=== PATIENT | male | born 1985 | race Two or more races ===

== ENCOUNTER 2016-11-17 08:56 | Emergency (ER) | payer OTHER, BC ==
[~2016-11-17] VITALS: Ht 172.7 cm; Wt 117.3 kg
[2016-11-17 08:56] VITALS: BP 146/92
[2016-11-17] MEDS ORDERED: OMEP40CA2 (09:04)
[2016-11-17] MEDS ORDERED: LOSA25TA8 (09:04)
[2016-11-17] MEDS ORDERED: ROBA500T PO (09:58)
[2016-11-17] MEDS ORDERED: IBUP80TA PO (09:58)
== END 2016-11-17 10:11 | disposition home or self-care (01) ==
LOC: M ED 08:56
DX: S33.5XXA Sprain of ligaments of lumbar spine, initial encounter (principal); W10.8XXA Fall (on) (from) other stairs and steps, initial encounter; Y92.89 Other specified places as the place of occurrence of the external cause; Y93.01 Activity, walking, marching and hiking; Y99.9 Unspecified external cause status

== ENCOUNTER 2016-11-21 13:16 | Emergency (ER) | payer OTHER, BC ==
[~2016-11-21] VITALS: Ht 172.7 cm; Wt 115.9 kg
[2016-11-21 13:16] VITALS: BP 132/92
[~2016-11-21 13:16] MED LIST: IBUP80TA PO; LOSA25TA8; OMEP40CA2; ROBA500T PO
== END 2016-11-21 14:01 | disposition home or self-care (01) ==
LOC: M ED 13:16
DX: S73.101A Unspecified sprain of right hip, initial encounter (principal); I10 Essential (primary) hypertension; K21.9 Gastro-esophageal reflux disease without esophagitis; X58.XXXA Exposure to other specified factors, initial encounter; Y92.9 Unspecified place or not applicable; Y99.9 Unspecified external cause status; Y93.9 Activity, unspecified; Z79.899 Other long term (current) drug therapy

== ENCOUNTER 2017-09-27 12:06 | Emergency (ER) | payer BC, OTHER | END 2017-09-27 13:55 | disposition home or self-care (01) | LOC: M ED 12:06 | DX: S83.92XA Sprain of unspecified site of left knee, initial encounter (principal); M25.462 Effusion, left knee; X58.XXXA Exposure to other specified factors, initial encounter; Y92.89 Other specified places as the place of occurrence of the external cause; Z79.899 Other long term (current) drug therapy | CPT/HCPCS: 73564 ==

== ENCOUNTER → 2017-10-09 | Outpatient (REF) | payer BC, OTHER ==
[2017-10-09 15:58] LABS: BASO # 0.1 10^3/uL (0.0-0.2); BASO % 0.5 % (0.0-1.0); EOS # 0.1 10^3/uL (0.0-0.50); EOS % 1.1 % (0.0-3.0); HEMOGLOBIN 16.9 g/dl (13.5-17.5); IMMATURE GRANULOCYTE % 0.4 % (0-3.0); LYMPH # 2.2 10^3/uL (1.5-4.5); LYMPH % 21.8 % (24.0-44.0); MEAN CORPUSCULAR HEMOGLOBIN 27.8 pg (27.0-33.0); MEAN CORPUSCULAR HGB CONC 33.8 g/dl (32.0-36.5); MEAN CORPUSCULAR VOLUME 82.2 fl (80.0-96.0); MONO # 0.6 10^3/uL (0.0-0.8); NEUTROPHILS % 70.2 % (36.0-66.0); PLATELET COUNT, AUTOMATED 335 10^3/uL (150-450); RED BLOOD COUNT 6.08 10^6/uL (4.30-6.10); RED CELL DISTRIBUTION WIDTH 12.4 % (11.5-14.5)
[2017-10-09 16:19] LABS: C REACTIVE PROTEIN QUANTITATIV 1.65 MG/DL (0.00-0.30); RHEUMATOID FACTOR QUANT < 10.0 IU/ML (<15.0)
[2017-10-09 16:19] LABS: URIC ACID 10.3 MG/DL (3.5-7.2)
[2017-10-09 17:27] LABS: ERYTHROCYTE SEDIMENTATION RATE 2 mm/hr (0-15)
[2017-10-12 00:07] LABS: ANTINUCLEAR ANTIBODIES DIRECT Negative (Negative); Lyme Disease IgG/IgM Antibodie <0.91 ISR (0.00-0.90); Lyme Disease IgM Ab Quantitati <0.80 index (0.00-0.79)
== END ==
LOC: M LAB REF 15:30
DX: M25.562 Pain in left knee (principal)
CPT/HCPCS: 84550

== ENCOUNTER → 2018-07-19 | Outpatient (REF) | payer OTHER ==
[~2018-07-19] MED LIST changes: +LOSA25TA14; -LOSA25TA8; +MOBI4TAB PO; +NAPR-885 PO; +ULTR50TA8 PO
[2018-07-19 14:55] LABS: INFLUENZA A AMPLIFICATION NEGATIVE (NEGATIVE); INFLUENZA B AMPLIFICATION NEGATIVE (NEGATIVE)
== END ==
LOC: M LAB REF 14:06
PROVIDERS: ATTEND Physician Assistant
DX: J11.1 Influenza due to unidentified influenza virus with other respiratory manifestations (principal); R50.9 Fever, unspecified

== ENCOUNTER 2018-10-16 08:51 | Emergency (ER) | payer BC, OTHER ==
[~2018-10-16] VITALS: Ht 175.3 cm; Wt 116.4 kg
[2018-10-16] MEDS ORDERED: COLC1CAP PO (09:09)
[2018-10-16] MEDS ORDERED: ALLO100T PO (09:09)
[2018-10-16] MEDS ORDERED: LOSA50TA5 PO (09:09)
[2018-10-16] MEDS ORDERED: RABIES VACCINE HUMAN 2.5 INTERNATIONAL UNITS/ML VIAL (90675) IM ONE (09:30)
[2018-10-16] MEDS ORDERED: RABIES IMMUNE GLOBULIN 1500 INTERNATIONAL UNIT/5ML VIAL (90375) IM ONE ×2 (09:30→12:00)
[2018-10-16 10:36] VITALS: BP 129/81
[2018-10-16] MEDS ORDERED: RABIES IMMUNE GLOBULIN 300 INTERNATIONAL UNITS/1ML VIAL (90375) IM ONE (12:00)
== END 2018-10-16 11:09 | disposition home or self-care (01) ==
LOC: M ED 08:51
DX: Z20.3 Contact with and (suspected) exposure to rabies (principal); I10 Essential (primary) hypertension; Z79.899 Other long term (current) drug therapy

== ENCOUNTER 2018-10-16 12:25 | Emergency (ER) | payer BC, OTHER ==
[~2018-10-16] VITALS: Ht 175.3 cm; Wt 116.2 kg
[~2018-10-16 12:25] MED LIST changes: +ALLO100T PO; +COLC1CAP PO; +LOSA50TA5 PO
[2018-10-16 12:40] VITALS: BP 147/91
[2018-10-16] MEDS ORDERED: RABIES IMMUNE GLOBULIN 1500 INTERNATIONAL UNIT/5ML VIAL (90375) IM ONE ×2 (12:45→13:00)
[2018-10-16] MEDS ORDERED: RABIES IMMUNE GLOBULIN 300 INTERNATIONAL UNITS/1ML VIAL (90375) IM ONE (13:00)
== END 2018-10-16 13:29 | disposition home or self-care (01) ==
LOC: M ED 12:25
DX: Z20.3 Contact with and (suspected) exposure to rabies (principal); Z79.899 Other long term (current) drug therapy

== ENCOUNTER 2018-10-19 10:06 | Emergency (ER) | payer BC, OTHER ==
[~2018-10-19] VITALS: Ht 175.3 cm; Wt 116.8 kg
[2018-10-19] MEDS ORDERED: RABIES VACCINE HUMAN 2.5 INTERNATIONAL UNITS/ML VIAL (90675) IM ONE (10:45)
[2018-10-19 11:13] VITALS: BP 132/89
== END 2018-10-19 11:15 | disposition home or self-care (01) ==
LOC: M ED 10:06
DX: Z23 Encounter for immunization (principal); Z20.3 Contact with and (suspected) exposure to rabies; I10 Essential (primary) hypertension; Z79.899 Other long term (current) drug therapy

== ENCOUNTER 2018-10-23 11:13 | Emergency (ER) | payer BC, OTHER ==
[~2018-10-23] VITALS: Ht 175.3 cm; Wt 116.8 kg
[2018-10-23] MEDS ORDERED: RABIES VACCINE HUMAN 2.5 INTERNATIONAL UNITS/ML VIAL (90675) IM ONE (13:30)
[2018-10-23 13:45] VITALS: BP 120/82
== END 2018-10-23 13:46 | disposition home or self-care (01) ==
LOC: M ED 11:13
DX: Z23 Encounter for immunization (principal); Z20.3 Contact with and (suspected) exposure to rabies; G47.30 Sleep apnea, unspecified; Z99.89 Dependence on other enabling machines and devices

== ENCOUNTER 2018-10-30 16:31 | Emergency (ER) | payer BC, OTHER ==
[~2018-10-30] VITALS: Ht 175.3 cm; Wt 118.0 kg
[2018-10-30] MEDS ORDERED: RABIES VACCINE HUMAN 2.5 INTERNATIONAL UNITS/ML VIAL (90675) IM ONE (17:00)
[2018-10-30 17:34] VITALS: BP 168/88
== END 2018-10-30 17:34 | disposition home or self-care (01) ==
LOC: M ED 16:31
DX: Z23 Encounter for immunization (principal); Z20.3 Contact with and (suspected) exposure to rabies; Z79.899 Other long term (current) drug therapy

== ENCOUNTER → 2019-08-02 | Outpatient (CLI) | payer BC, OTHER ==
[~2019-08-02] MED LIST changes: -OMEP40CA2; +OMEP40CA97
== END ==
LOC: M LABSMTC 11:51
PROVIDERS: ATTEND Family Medicine
DX: Z11.59 Encounter for screening for other viral diseases (principal); Z20.828 Contact with and (suspected) exposure to other viral communicable diseases
CPT/HCPCS: 87502; U0002

== ENCOUNTER → 2020-02-19 | Outpatient (REF) | payer OTHER | LOC: M LAB REF 17:43 | PROVIDERS: ATTEND Dermatology | DX: D23.5 Other benign neoplasm of skin of trunk (principal) ==

== ENCOUNTER → 2020-06-10 | Outpatient (REF) | payer OTHER ==
[2020-06-10 17:36] LABS: C REACTIVE PROTEIN QUANTITATIV 7.14 MG/DL (0.00-0.30); URIC ACID 7.6 MG/DL (3.5-7.2)
== END ==
LOC: M LAB REF 16:17
PROVIDERS: ATTEND Internal Medicine
DX: M10.9 Gout, unspecified (principal)

== ENCOUNTER → 2020-07-02 | Outpatient (CLI) | payer OTHER ==
[2020-07-02 15:34] LABS: BASO % 0.6 % (0.0-1.0); EOS % 0.6 % (0.0-3.0); HEMATOCRIT 48.9 % (42.0-52.0); HEMOGLOBIN 16.4 g/dl (13.5-17.5); LYMPH % 28.8 % (24.0-44.0); MEAN CORPUSCULAR HGB CONC 33.5 g/dl (32.0-36.5); MEAN CORPUSCULAR VOLUME 83.4 fl (80.0-96.0); MONO # 0.7 10^3/uL (0.0-0.8); MONO % 10.1 % (2.0-8.0); NEUTROPHILS # 4.2 10^3/uL (1.5-8.5); NEUTROPHILS % 59.5 % (36.0-66.0); PLATELET COUNT, AUTOMATED 280 10^3/uL (150-450); RED BLOOD COUNT 5.86 10^6/uL (4.30-6.10)
[2020-07-02 15:54] LABS: ERYTHROCYTE SEDIMENTATION RATE 9 mm/hr (0-15)
[2020-07-02 16:05] LABS: RHEUMATOID FACTOR QUANT < 10.0 IU/ML (<15.0); URIC ACID 8.5 MG/DL (3.5-7.2)
== END ==
LOC: M PLALAB 13:58
PROVIDERS: ATTEND Orthopaedic Surgery
DX: M10.062 Idiopathic gout, left knee (principal)

== ENCOUNTER → 2020-07-02 | Outpatient (REF) | payer OTHER ==
[2020-07-02 18:02] LABS: SOURCE, BODY FLUID OTHER; SYNOVIAL FLUID COLOR YELLOW (YELLOW)
[2020-07-02 18:12] LABS: CRYSTALS, BODY FLUID NONE SEEN (NONE SEEN)
[2020-07-03 09:00] LABS: BODY FLUID RHEUMATOID SCREEN NEGATIVE (NEGATIVE)
[2020-07-03 09:01] LABS: MUCIN CLOT TEST 4+ (4+)
== END ==
LOC: M LAB REF 17:24
PROVIDERS: ATTEND Orthopaedic Surgery
DX: Z00.00 Encounter for general adult medical examination without abnormal findings (principal)

== ENCOUNTER → 2021-01-13 | Outpatient (CLI) | payer BC, OTHER ==
[~2021-01-13] MED LIST changes: +OMEP40CA4; -OMEP40CA97
--- NOTE | 2021-01-13 10:31 | REP ---
INDICATION: IDIOPATHIC CHRONIC GOUT WITHOUT TOPHUS. COMPARISON: None. TECHNIQUE: Eight views, bilateral foot radiographs. FINDINGS: Four views of each foot show overall normal mineralization. There is a os naviculare on the left and a somewhat prominent medial navicular process on the right. This is normal variant. No bony erosive changes seen. There is minimal spurring at the 1st MTP joint on the left. Bones, joints and soft tissues are otherwise unremarkable. IMPRESSION: Mild 1st MTP joint spurring on the left. 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 Somewhat prominent medial navicular process bilaterally. Normal variant. <Electronically signed by Anatoly Sheppard > 01/13/21 1026
[2021-01-13 12:18] LABS: ALBUMIN 4.1 GM/DL (3.2-5.2); ALT/SGPT 28 U/L (12-78); BILIRUBIN,DIRECT 0.2 MG/DL (0.0-0.2); BILIRUBIN,TOTAL 0.9 MG/DL (0.2-1.0); BLOOD UREA NITROGEN 16 MG/DL (7-18); CALCIUM LEVEL 9.5 MG/DL (8.5-10.1); CARBON DIOXIDE LEVEL 31 MEQ/L (21-32); CHLORIDE LEVEL 102 MEQ/L (98-107); CREATININE FOR GFR 1.23 MG/DL (0.70-1.30); GLOMERULAR FILTRATION RATE > 60.0 (>60); GLUCOSE, FASTING 111 MG/DL (70-100); POTASSIUM SERUM 3.8 MEQ/L (3.5-5.1); SODIUM LEVEL 138 MEQ/L (136-145); URIC ACID 6.4 MG/DL (3.5-7.2)
== END ==
LOC: M WUC 09:09
PROVIDERS: ATTEND Internal Medicine
DX: M1A.00X0 Idiopathic chronic gout, unspecified site, without tophus (tophi) (principal); Z79.1 Long term (current) use of non-steroidal anti-inflammatories (NSAID); M18.12 Unilateral primary osteoarthritis of first carpometacarpal joint, left hand

== ENCOUNTER → 2022-03-03 | Outpatient (REF) | payer BC, OTHER ==
[~2022-03-03] MED LIST changes: +LOSA25TA13; -LOSA25TA14
[2022-03-03 10:08] LABS: SEMEN APPEARANCE OPAQUE (OPAQUE); SEMEN VISCOSITY LIQUID (LIQUID); SEMEN VOLUME 3.5 ml (2.0-5.0); WBC CONCENTRATION <=1 M/ml (<=1 M/ml)
== END ==
LOC: M SMT 09:51
PROVIDERS: ATTEND Urology
DX: Z30.8 Encounter for other contraceptive management (principal)

== ENCOUNTER → 2022-11-13 | Outpatient (CLI) | payer BC, OTHER | LOC: M RAD 10:22 | PROVIDERS: ATTEND Internal Medicine | DX: N28.9 Disorder of kidney and ureter, unspecified (principal) ==

== ENCOUNTER → 2023-09-14 | Outpatient (REF) | payer BC, OTHER ==
[2023-09-14 18:06] LABS: FOLLICLE STIMULATING HORMONE 3.5 mIU/ML (1.4-18.1); PROLACTIN 7.15 NG/ML (2.1-17.7)
[2023-09-14 18:07] LABS: LUTEINIZING HORMONE 3.8 mIU/ML (1.5-9.3)
[2023-09-17 15:09] LABS: TESTOSTERONE FREE (DIRECT) 11.3 pg/mL (6.8-21.5)
== END ==
LOC: M LAB REF 16:52
PROVIDERS: ATTEND Internal Medicine
DX: N52.9 Male erectile dysfunction, unspecified (principal)

== ENCOUNTER → 2024-03-17 | Outpatient (REF) | payer OTHER, BC ==
[2024-03-19 12:28] LABS: QuantiFERON-TB Gold Plus NEGATIVE (NEGATIVE)
== END ==
LOC: M LAB REF 12:55
PROVIDERS: ATTEND Internal Medicine
DX: Z11.1 Encounter for screening for respiratory tuberculosis (principal)

== ENCOUNTER → 2025-04-16 | Outpatient (REF) | payer OTHER | LOC: M LAB REF 11:56 | PROVIDERS: ATTEND Internal Medicine | DX: E83.119 Hemochromatosis, unspecified (principal) ==